=== PATIENT | male | born 1985 | race African-American/Black ===

== ENCOUNTER 2018-10-21 19:43 | Emergency (ER) | payer OTHER ==
[~2018-10-21] VITALS: Ht 185.4 cm; Wt 84.0 kg
[2018-10-21] MEDS ORDERED: VOLTAREN - GENE75 MG PO (21:20)
[2018-10-21 21:28] VITALS: BP 135/73
== END 2018-10-21 21:38 | disposition home or self-care (01) | DRG 552 ==
LOC: ED 19:43
DX: S16.1XXA Strain of muscle, fascia and tendon at neck level, initial encounter (principal); M25.512 Pain in left shoulder; R07.89 Other chest pain; V49.40XA Driver injured in collision with unspecified motor vehicles in traffic accident, initial encounter